=== PATIENT | male | born 1960 | race Caucasian/White ===

== ENCOUNTER 2018-07-16 09:47 | Emergency (ER) | payer BC, SELFPAY ==
[2018-07-16] VITALS (8 sets, daily range): BP systolic 149–164; BP diastolic 85–98; PULSE 68–113; RESP 16–18; TEMP 36.6; O2SAT 95–98; BMI 36.8
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
--- NOTE | 2018-07-16 10:07 | ED.VISSUMM ---
- ER Visit Summary Date of Service: 07/16/18 Chief Complaint: [] Depression drug overuse History of Present Illness: The patient is a 57 M [] the patient is here with the they both indicate that this morning the patient took what they felt was a muscle relaxer Relafen which is actually nonsteroidal but the patient thought was a muscle relaxer because he has had trouble sleeping overnight wanted to sleep it is unclear how many he took he may have taken a few to 20 or 40 otherwise not sure nor is the patient he indicates he did not do that because he was suicidal only because he has had multiple things on his mind related to a bankruptcy, he thought the pills he took oral muscle relaxer would help him relax and sleep, he did this earlier this morning around 7 it is now 10 AM he has had no head neck chest or abdominal pain no change in mental status, the is with him she indicates he has been slightly more depressed than normal the patient denies being actively suicidal the would concur with that but is concerned about his depression and wanted him to see a counselor today because of all the above, there are guns in the home and the is taking them away he has never been suicidal he denies being suicidal now Physical Examination: [] 140/80 General, no distress resting comfortably HEENT is generally unremarkable The neck is supple no adenopathy Cardiovascular, regular rate and rhythm Lungs, clear bilateral Abdomen, soft nontender Extremities, no clubbing cyanosis or edema Neurologic, awake alert answering questions appropriately moving all 4 extremities , There is no psychomotor agitation he is awake and alert answering questions appropriately very cooperative he adamantly denies suicidal or homicidal ideation the is comfortable taking him home if the mental health counselor assessment feels that is appropriate for outpatient follow-up Test Results: [] Emergency Department Course and Treatment: [] This time we are obtaining screening labs and we have asked mental health services to see him Treatment Plan: [] Disposition: [] Pending mental health evaluation Impression: [] Depression, overuse of medication This note was generated with [employer]View[employer]ieation software. It may contain incorrect words, spelling, and punctuation that were not noted in review of the chart prior to signing ED Disposition - Plan for ED Patient: Chief Complaint: Overdose
--- NOTE | 2018-07-16 10:08 | NURSING ---
CALLED [facility], PER DR CLEMENTE'S REQUEST
[2018-07-16 10:23] LABS: Absolute Lymphocyte Count 1.23 X10^3/ul (0.83-4.51); Absolute Neutrophil Count 5.4 X10^3/uL (2.0-7.7); Basophil# 0.02 X10^3/uL; Basophil% 0.3 % (0-1); Eosinophil# 0.05 X10^3/uL; Eosinophils% 0.7 % (0-5); Hematocrit 46.4 % (40-54); Hemoglobin 16.4 g/dl (13.0-16.5); Lymphocyte # 1.23 X10^3/ul (4.0); Lymphocyte % 17.7 % (19-41); Mean Corp Hgb Conc 35.3 g/gl (32-36); Mean Corpuscular Hgb 33.2 pg (27.0-32.0); Mean Corpuscular Volume 93.9 fL (80-94); Mean Platelet Vol. 10.5 fl (6.2-12.0); Monocyte# 0.29 X10^3/uL; Monocyte% 4.2 % (0-10); Neutrophil # 5.35 X10^3/uL (2.7-7.7); Neutrophil % 76.8 % (47-70); POSITIVE COUNT NO; POSITIVE DIFFERENTIAL NO; POSITIVE MORPHOLOGY NO; Platelet Count 140 K/mm3 (150-450); RBC Distribution Width CV 12.6 % (11.6-14.6); RBC Distribution Width SD 43.3 fl (35.1-43.9); Red Blood Count 4.94 M/mm3 (4.6-6.2)
--- NOTE | 2018-07-16 10:40 | NURSING ---
CALLED [facility] TO MAKE SURE MESSAGE WAS GIVEN TO WORKER. ANSWERING SERVICE SAID SHE GAVE INFO TO
[2018-07-16 10:44] LABS: Anion Gap 11 (5-15); BUN 10 mg/dL (7-18); BUN/Creat Ratio 13.1 RATIO (10-20); Calcium,Total 8.2 mg/dL (8.5-10.1); Chloride 99 mmol/L (98-107); Creatinine, Serum 0.77 mg/dL (0.70-1.30); EST Glomerular Filtration Rate 111 mL/min (>60); Est Glom Filt Rate - Afr Amer 135 mL/min (>60); Estimated Creatinine Clearance 100.15 ml/min; Glucose 128 mg/dL (74-106); Potassium 3.6 mmol/L (3.5-5.1); Sodium Level 135 mmol/L (136-145)
[2018-07-16 10:57] LABS: Amphetamine Urine VISTA NEGATIVE (<1000 ng/mL); Barbiturate Urine VISTA NEGATIVE (< 200 ng/mL); Benzodiazepine Urine VISTA NEGATIVE (< 200 ng/mL); Cocaine Urine VISTA NEGATIVE (< 300 ng/mL); Ecstacy Urine VISTA NEGATIVE (< 500 ng/mL); Methadone Urine VISTA NEGATIVE (< 300 ng/mL); PCP Urine VISTA NEGATIVE (< 25 ng/mL); THC Urine VISTA NEGATIVE (< 50 ng/mL); Vista UDS pH Range 5
--- NOTE | 2018-07-16 11:02 | NURSING ---
JORDAN, MARCIE, CALLED BACK. SHE IS AT ANOTHER HOSPITAL AND WILL BE HERE WHEN DONE.
[2018-07-16 11:22] LABS: AST(SGOT) 52 U/L (15-37); Alanine Aminotransfer ALT/SGPT 108 U/L (16-61); Alkaline Phosphatase 92 U/L (45-117); Bilirubin, Direct 0.26 mg/dL (0.00-0.30); Globulin 4.5 g/dL (2.2-4.2); Protein, Total 8.5 g/dL (6.4-8.2)
--- NOTE | 2018-07-16 11:24 | ED.RN ---
mental health services called. medically cleared
--- NOTE | 2018-07-16 12:15 | ED.RN ---
made statement about concern for pt increasing depression and the acess of guns at home. hoping to remove . dr ramirez
--- NOTE | 2018-07-16 13:36 | NURSING ---
JORDAN, [facility], HERE
--- NOTE | 2018-07-16 14:39 | ED.RN ---
this rn talks with dejan from [facility]. pt did admit to the crises worker that he left a suicide this am stating you will be better off without me. states he did want to . pt is pink slipped. 1-1 sitter initiated
--- NOTE | 2018-07-16 14:43 | ED.RN ---
Sitter observation started after clarification of pt initial suicidal thoughts. He admitted to crisis counselor he had written a suicide note for his sons. He continues to deny suicidal thoughts at this time. His information has been forwarded to [facility] for referral.
--- NOTE | 2018-07-16 15:07 | ED.RN ---
FAMILY REQUESTING DR TO TALK WITH THEM. DR CLEMENTE REFUSES TO TALK WITH FAMILY. [facility] REGARDING PT AND FAMILY REQUESTING PHYSICIAN TO DISCUSS WITH THEM IF THEY MAY TRANSFER PT PER [facility]IVATE CAR. DR CLEMENTE AGAIN REFUSES TO TALK WITH PT AND FAMILY. CHARGE NURSE AWARE
--- NOTE | 2018-07-16 15:31 | ED.RN ---
DR JAMESYED IN TO TALK WITH PATIENT AND FAMILY
--- NOTE | 2018-07-16 23:23 | ED.RN ---
ATTEMPTED TO ARRANGE TRANSPORT TO [facility], CALLED [facility], ([facility], [facility], [facility], [facility], [facility]), ALL DECLINED TO TRANSPORT AT THIS TIME
[2018-07-17] VITALS (7 sets, daily range): BP systolic 128–148; BP diastolic 72–96; PULSE 71–76; RESP 16; TEMP 36.6; O2SAT 96–99
--- NOTE | 2018-07-17 05:35 | ED.RN ---
CALLED [facility] TO ATTEMPT TO ARRANGE TRANSPORT TO [facility]. THEY WILL ARRIVE AROUND 0730 FOR THIS TRANSPORT
== END 2018-07-17 07:45 ==
PROVIDERS: Emergency Provider Emergency Medicine
DX: F32.9 Major depressive disorder, single episode, unspecified (principal); T39.391A Poisoning by other nonsteroidal anti-inflammatory drugs [NSAID], accidental (unintentional), initial encounter
CPT/HCPCS: 80048; 80076; 80307; 80320; 85025; 99283; G0480

== ENCOUNTER 2021-09-21 08:44 | Outpatient (CLI) | payer BC, SELFPAY ==
--- NOTE | 2021-09-21 08:54 | EKG12_ITS ---
Test Reason : PREOP Blood Pressure : / mmHG Vent. Rate : 099 BPM Atrial Rate : 099 BPM P-R Int : 160 ms QRS Dur : 080 ms QT Int : 342 ms P-R-T Axes : 039 -16 -01 degrees QTc Int : 438 ms Sinus rhythm with Premature atrial complexes Otherwise normal ECG Confirmed by ANDRY FAROOQ, RACHAEL ([id number]), editorial writer MADELIN ROSALES ([id number]) on 09/22/2021 9:21:56 AM Referred By: JESSICA SANTILLAN Confirmed By:RACHAEL WILDE MD
== END 2021-09-21 23:59 | disposition home or self-care (01) ==
LOC: PSN 08:45
PROVIDERS: Visit Provider Physician Assistant
DX: Z01.810 Encounter for preprocedural cardiovascular examination (principal)
CPT/HCPCS: 93005